=== PATIENT | female | born 1995 | race African-American/Black ===

== ENCOUNTER 2017-01-30 18:46 | Emergency (ER) | payer OTHER ==
[~2017-01-30] VITALS: Ht 157.5 cm; Wt 49.4 kg
[2017-01-30 19:09] LABS: URINE BILIRUBIN NEGATIVE (Negative); URINE BLOOD 1+ (Negative); URINE COLOR YELLOW; URINE GLUCOSE-RANDOM* NEGATIVE (Negative); URINE KETONES NEGATIVE (Negative); URINE NITRITE NEGATIVE (Negative); URINE PROTEIN (DIPSTICK) NEGATIVE (Negative); URINE SPECIFIC GRAVITY 1.015 (1.003-1.035); URINE UROBILINOGEN 0.2 E.U./dl (0.2-1.0)
[2017-01-30 19:17] LABS: BACTERIA >30 Many /HPF (None Seen); CASTS None Seen /LPF (None Seen); CRYSTALS None Seen /LPF (None Seen); SQUAMOUS >10 Many /LPF (0-3); URINE RBC 3-10 Few /HPF (0-2); URINE WBC >25 Many /HPF (0-5)
[2017-01-30] MEDS ORDERED: FLAGYL500 MG PO (19:30)
[2017-01-30] MEDS ORDERED: PEPCID40 MG PO (19:30)
[2017-01-30] MEDS ORDERED: MACROBID 100 M100 M1 PO (19:30)
[2017-01-30] MEDS ORDERED: SENOKOT-S1 TA1 PO (19:30)
[2017-01-30 20:11] VITALS: BP 128/87
[2017-01-30] MEDS ORDERED: NORCO 5-325 TA1 EACH PO (20:14)
[2017-01-30] MEDS ORDERED: KEFLEX500 MG PO (20:14)
== END 2017-01-30 20:25 | disposition home or self-care (01) ==
LOC: ER 18:46
PROVIDERS: Emergency Medicine
DX: N39.0 Urinary tract infection, site not specified (principal); A59.9 Trichomoniasis, unspecified; M41.9 Scoliosis, unspecified; F17.210 Nicotine dependence, cigarettes, uncomplicated; F15.10 Other stimulant abuse, uncomplicated; Z88.1 Allergy status to other antibiotic agents; Z88.0 Allergy status to penicillin

== ENCOUNTER 2017-12-05 18:26 | Emergency (ER) | payer OTHER ==
[~2017-12-05] VITALS: Ht 157.5 cm; Wt 51.7 kg
[~2017-12-05 18:26] MED LIST: FLAGYL500 MG PO; KEFLEX500 MG PO; MACROBID 100 M100 M1 PO; NORCO 5-325 TA1 EACH PO; PEPCID40 MG PO; SENOKOT-S1 TA1 PO
[2017-12-05] MEDS ORDERED: NORFLEX100 MG PO (20:09)
[2017-12-05] MEDS ORDERED: NAPROSYN500 MG PO (20:09)
[2017-12-05 20:42] VITALS: BP 108/72
== END 2017-12-05 20:44 | disposition home or self-care (01) ==
LOC: ER 18:26
DX: S90.02XA Contusion of left ankle, initial encounter (principal); S29.012A Strain of muscle and tendon of back wall of thorax, initial encounter; F17.210 Nicotine dependence, cigarettes, uncomplicated; Z88.0 Allergy status to penicillin; Z88.1 Allergy status to other antibiotic agents; V89.2XXA Person injured in unspecified motor-vehicle accident, traffic, initial encounter; Y93.89 Activity, other specified; Y92.89 Other specified places as the place of occurrence of the external cause; Y99.8 Other external cause status